=== PATIENT | female | born 1995 | race African-American/Black ===

== ENCOUNTER 2017-03-27 21:42 | Emergency (ER) | payer OTHER ==
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
[2017-03-28] MEDS ORDERED: KETOROLAC TROMETHAMINE 60 MG/2 ML SDV IM ONE (02:12)
[2017-03-28 02:25] VITALS: BP 127/76
== END 2017-03-28 02:26 | disposition home or self-care (01) ==
LOC: ER 21:42
DX: S46.812A Strain of other muscles, fascia and tendons at shoulder and upper arm level, left arm, initial encounter (principal); M25.512 Pain in left shoulder; R03.0 Elevated blood-pressure reading, without diagnosis of hypertension; V43.62XA Car passenger injured in collision with other type car in traffic accident, initial encounter
CPT/HCPCS: 99284; 96372; 73030; J1885